=== PATIENT | male | born 1950 | race Caucasian/White ===

== ENCOUNTER 2019-09-15 11:01 | Day surgery (SDC) | payer MEDICARE ==
[~2019-09-15] VITALS: Ht 177.8 cm; Wt 117.5 kg
[2019-09-15 11:45] VITALS: BP 139/78; PULSE 74; TEMP 98.7
[2019-09-15 14:15] VITALS: BP 104/59; PULSE 63; TEMP 97.3
--- NOTE | 2019-09-15 14:15 | NUR ---
Patient arrives to [facility] [place] [facility] for recovery. He is alert and oriented, sitting up in bed. Bedside report is received from [employer], Isabell. Monitoring is applied - VSS on room air. He denies any pain, nausea, or need. He is offered and receives juice and a muffin to eat. Call light is in reach. Discharge plan is discussed with the patient.
[2019-09-15 14:17] VITALS: TEMP 98.5
[2019-09-15 14:30] VITALS: BP 112/59; PULSE 63
--- NOTE | 2019-09-15 14:30 | NUR ---
Patient has eaten his muffin and drank his juice. VSS On room air. Denies pain, nausea, or need.
--- NOTE | 2019-09-15 14:40 | NUR ---
Patient is escorted to the restroom at this time. He voids large amount pink urine and returns to room.
[2019-09-15 14:45] VITALS: BP 108/57; PULSE 64
--- NOTE | 2019-09-15 14:45 | NUR ---
Patient is resting comfortably in his room. He denies pain or nausea. He is sitting on the side of the bed. He has voided, and taken PO without difficulty. He has met discharge criteria and states "I'm ready to get out of here". Will return with discharge paperwork.
--- NOTE | 2019-09-15 15:05 | NUR ---
PIV is removed with catheter intact and hemostasis achieved. Discharge instructions are discussed. He denies any questions and verbalizes understanding. He changes to his clothing independently. He is escorted to the exit via wheelchair. He is discharged to home with ride in private vehicle at 1505.
== END 2019-09-15 15:05 | disposition home or self-care (01) ==
LOC: SDCO 11:01
DX: C67.4 Malignant neoplasm of posterior wall of bladder (principal); G47.33 Obstructive sleep apnea (adult) (pediatric); E78.5 Hyperlipidemia, unspecified; F17.210 Nicotine dependence, cigarettes, uncomplicated; Z90.49 Acquired absence of other specified parts of digestive tract; Z85.038 Personal history of other malignant neoplasm of large intestine; Z88.0 Allergy status to penicillin; Z98.52 Vasectomy status; Z80.3 Family history of malignant neoplasm of breast; Z80.0 Family history of malignant neoplasm of digestive organs; Z88.8 Allergy status to other drugs, medicaments and biological substances
CPT/HCPCS: J0690; J2250; J2704; J3010; J7120; Q9967